=== PATIENT | female | born 1935 | race Asian ===

== ENCOUNTER 2018-03-15 21:16 | Inpatient (IN) | payer OTHER, MEDICAID ==
[~2018-03-15] VITALS: Ht 157.5 cm; Wt 36.3 kg
[2018-03-15 21:16] VITALS: BP_SYST 99
[~2018-03-15 21:16] MED LIST: ACET325T53 PO; ALBU2.5V7 INH; BISA5TAB10 PO; FLUT1DIS3 INH; GUAI600T PO; HYDR-4100 PO; IPRA0.2S6 INH; LEVO25TA7 PO; MAGN400O4 PO; MIDO2.5T PO; MYL80 PO; OMEP20CA10 PO; TAMS0.4C96 PO
[2018-03-15] MEDS ORDERED: NACL 0.9% 1,000 ML IV ONE (21:21)
[2018-03-15] MEDS ORDERED: ASPIRIN 81 MG TAB.CHEW PO ONE (21:30)
[2018-03-15] MEDS ORDERED: MORPHINE 4 MG/ML INJ. SYRINGE IVP ONE (21:30)
[2018-03-15] MEDS ORDERED: cefTRIAXone 1 GM IVPB PREMIX 50 ML IV ONE (21:30)
[2018-03-15] MEDS ORDERED: CARV3.1246 PO (22:02)
[2018-03-15] MEDS ORDERED: OLME20TA14 PO (22:02)
[2018-03-15] MEDS ORDERED: METO-290 PO (22:02)
[2018-03-15] MEDS ORDERED: CRAN450C PO (22:02)
[2018-03-15] MEDS ORDERED: XOP.63 INH (22:02)
[2018-03-15] MEDS ORDERED: LEVO50TA77 PO (22:02)
[2018-03-15] MEDS ORDERED: DOCU-144 PO (22:02)
[2018-03-15] MEDS ORDERED: MEGE400O PO (22:02)
[2018-03-15] MEDS ORDERED: FURO-150 PO (22:02)
[2018-03-15] MEDS ORDERED: ASCO500T20 PO (22:02)
[2018-03-15] MEDS ORDERED: HYOS0.1275 SL (22:02)
[2018-03-15] MEDS ORDERED: APIX2.5T PO (22:02)
[2018-03-15] MEDS ORDERED: LACT10SO66 PO (22:02)
[2018-03-15] MEDS ORDERED: MULT-1100 PO (22:02)
[2018-03-15 22:10] LABS: BILIRUBIN,URINE NEGATIVE (NEGATIVE); CLARITY/URINE CLOUDY (CLEAR); COLOR,URINE YELLOW (YELLOW); GLUCOSE,URINE NEGATIVE (NEGATIVE); KETONES,URINE NEGATIVE (NEGATIVE); LEUKOCYTE ESTERASE ,URINE 3+ (NEGATIVE); NITRITE, URINE POSITIVE (NEGATIVE); PROTEIN URINE NEGATIVE (NEGATIVE); UROBILINOGEN,URINE 0.2 (0.2-1.0)
[2018-03-15 22:18] LABS: BLOOD, URINE TRACE (NEGATIVE)
[2018-03-15 22:33] LABS: BACTERIA,URINE MANY /HPF (None Seen); RBC,URINE 0-3 /HPF (0-3); WBC,URINE 20-50 /HPF (0-3)
[2018-03-15 22:34] LABS: FINE GRANULAR CASTS,URINE 0-10 /LPF (None Seen); MUCUS,URINE 1+ /LPF (None Seen)
[2018-03-15 22:56] LABS: BASOPHILS % (AUTO) 0.3 % (0.0-2.0); EOSINOPHILS % (AUTO) 0.2 % (0.0-4.0); HEMATOCRIT 35.6 % (36-48); HEMOGLOBIN 11.9 g/dL (12.0-16.0); LYMPHOCYTES # (AUTO) 0.5 K/uL (1.0-5.5); LYMPHOCYTES % (AUTO) 5.1 % (20.5-51.5); MEAN CORPUSCULAR HEMOGLOBIN 32 pg (27-31); MEAN CORPUSCULAR HGB CONC 33 % (32-36); MEAN CORPUSCULAR VOLUME 96 fL (79.0-98.0); MONOCYTES # (AUTO) 0.6 K/uL (0.0-1.0); MONOCYTES % (AUTO) 5.8 % (1.7-9.3); NEUTROPHILS # (AUTO) 8.5 K/uL (1.8-7.7); NEUTROPHILS % (AUTO) 88.6 % (40.0-70.0); PLATELET COUNT (AUTO) 283 K/uL (130-430); RED BLOOD CELL COUNT(AUTO) 3.71 MIL/uL (4.2-6.2); RED CELL DISTRIBUTION WIDTH 15.6 % (9.0-15.0); WHITE BLOOD COUNT (AUTO) 9.6 K/uL (4.8-10.8)
[2018-03-15 23:02] LABS: ANION GAP 13 (5-15); CALCIUM 8.6 mg/dL (8.4-11.0); CHLORIDE 107 mmol/L (98-107); CREATININE 1.79 mg/dL (0.55-1.30); GLUCOSE 135 mg/dL (70-99); POTASSIUM 4.5 mmol/L (3.5-5.1); SODIUM SERUM 139 mmol/L (136-145); UREA NITROGEN, BLOOD 75 mg/dL (8-21)
[2018-03-15 23:05] LABS: ALANINE AMINOTRANSFERASE 11 U/L (12-78); ALBUMIN 2.7 g/dL (3.4-4.8); AMYLASE 39 U/L (0-100); ASPARTATE AMINOTRANSFERASE 12 U/L (10-37); LIPASE 93 U/L (73-393); TOTAL BILIRUBIN 0.6 mg/dL (0.0-1.0)
[2018-03-15 23:27] LABS: INR 1.1 (0.8-1.2)
[2018-03-15] MEDS ORDERED: NS 500 ML IV ONE (23:30)
[2018-03-16] MEDS ORDERED: LevALBUTEROL HCL 1.25 MG/0.5 ML *CONC.* VIAL.NEB (XOPENEX CONC.) INH PRN
[2018-03-16] MEDS ORDERED: ACETAMINOPHEN 325 MG TABLET PO PRN
[2018-03-16] MEDS ORDERED: MILK OF MAGNESIA 30 ML UDC PO PRN ×2
[2018-03-16] MEDS ORDERED: HYOSCYAMINE SULFATE 0.125 MG TABLET SL PRN
[2018-03-16 00:40] VITALS: BP_SYST 125
[2018-03-16] MEDS: D5/0.45 NS 1,000 ML IV SCH (01:09)
[2018-03-16] MEDS: AZITHROMYCIN 500 MG in NS 250 ML IV SCH (01:13)
[2018-03-16] MEDS ORDERED: AZITHROMYCIN 500 MG/VIAL (ZITHROMAX) IV ONE ×2 (01:14→01:34)
[2018-03-16 01:45] VITALS: BP_SYST 114
[2018-03-16] MEDS: LEVOTHYROXINE SODIUM 0.05 MG TABLET PO SCH (07:00)
[2018-03-16] MEDS: OMEPRAZOLE 20 MG CAPSULE.DR (PriLOSEC) PO SCH (07:00)
[2018-03-16 07:18] LABS: EOSINOPHILS % (AUTO) 0.1 % (0.0-4.0); HEMATOCRIT 32.8 % (36-48); HEMOGLOBIN 10.9 g/dL (12.0-16.0); LYMPHOCYTES # (AUTO) 0.6 K/uL (1.0-5.5); LYMPHOCYTES % (AUTO) 5.2 % (20.5-51.5); MEAN CORPUSCULAR HEMOGLOBIN 32 pg (27-31); MEAN CORPUSCULAR HGB CONC 33 % (32-36); MEAN CORPUSCULAR VOLUME 96 fL (79.0-98.0); MONOCYTES # (AUTO) 0.6 K/uL (0.0-1.0); MONOCYTES % (AUTO) 6.1 % (1.7-9.3); NEUTROPHILS # (AUTO) 9.4 K/uL (1.8-7.7); NEUTROPHILS % (AUTO) 88.6 % (40.0-70.0); PLATELET COUNT (AUTO) 230 K/uL (130-430); RED BLOOD CELL COUNT(AUTO) 3.41 MIL/uL (4.2-6.2); RED CELL DISTRIBUTION WIDTH 16.1 % (9.0-15.0); WHITE BLOOD COUNT (AUTO) 10.6 K/uL (4.8-10.8)
[2018-03-16 07:47] LABS: ANION GAP 10 (5-15); CALCIUM 7.9 mg/dL (8.4-11.0); CHLORIDE 115 mmol/L (98-107); CREATININE 1.57 mg/dL (0.55-1.30); GLUCOSE 136 mg/dL (70-99); POTASSIUM 4.5 mmol/L (3.5-5.1); SODIUM SERUM 146 mmol/L (136-145); UREA NITROGEN, BLOOD 63 mg/dL (8-21)
[2018-03-16 08:25] VITALS: BP_SYST 97
[2018-03-16] MEDS: CARVEDILOL 3.125 MG TABLET (COREG) PO SCH ×2 (09:00→21:00)
[2018-03-16] MEDS: LOSARTAN POTASSIUM 50 MG TABLET (COZAAR) PO SCH (09:00)
[2018-03-16] MEDS ORDERED: LEVALBUTEROL HCL 0.63 MG/3 ML VIAL.NEB INH SCH (09:00)
[2018-03-16] MEDS: FUROSEMIDE 20 MG TABLET PO SCH (09:00)
[2018-03-16] MEDS: APIXABAN 2.5 MG TABLET PO SCH ×2 (09:44→21:37)
[2018-03-16] MEDS: MEGESTROL ACETATE 400 MG/10 ML UDC PO SCH (09:44)
[2018-03-16] MEDS: METOCLOPRAMIDE HCL 10 MG TABLET PO SCH ×3 (09:44→21:37)
[2018-03-16] MEDS: LACTULOSE 20 GM/30 ML UDC PO SCH (09:44)
[2018-03-16] MEDS: ASCORBIC ACID 500 MG TABLET PO SCH (09:44)
[2018-03-16] MEDS: DOCUSATE SODIUM 100 MG CAPSULE PO SCH (09:44)
[2018-03-16 12:35] VITALS: BP_SYST 120
[2018-03-16 16:35] VITALS: BP_SYST 97
[2018-03-16 20:15] VITALS: BP_SYST 100
[2018-03-16] MEDS: cefTRIAXone 1 GM in D5W 50 ML IV SCH (21:37)
[2018-03-17] MEDS: AZITHROMYCIN 500 MG in NS 250 ML IV SCH (00:30)
[2018-03-17 01:15] VITALS: BP_SYST 104
[2018-03-17] MEDS: LEVOTHYROXINE SODIUM 0.05 MG TABLET PO SCH (06:42)
[2018-03-17] MEDS: OMEPRAZOLE 20 MG CAPSULE.DR (PriLOSEC) PO SCH (06:42)
[2018-03-17 08:52] VITALS: BP_SYST 107
[2018-03-17] MEDS: FUROSEMIDE 20 MG TABLET PO SCH (09:00)
[2018-03-17] MEDS: LOSARTAN POTASSIUM 50 MG TABLET (COZAAR) PO SCH (09:00)
[2018-03-17] MEDS: APIXABAN 2.5 MG TABLET PO SCH ×2 (09:45→22:35)
[2018-03-17] MEDS: ASCORBIC ACID 500 MG TABLET PO SCH (09:45)
[2018-03-17] MEDS: DOCUSATE SODIUM 100 MG CAPSULE PO SCH (09:45)
[2018-03-17] MEDS: METOCLOPRAMIDE HCL 10 MG TABLET PO SCH ×3 (09:45→22:35)
[2018-03-17] MEDS: MEGESTROL ACETATE 400 MG/10 ML UDC PO SCH (09:45)
[2018-03-17] MEDS: CARVEDILOL 3.125 MG TABLET (COREG) PO SCH ×2 (10:20→22:35)
[2018-03-17 12:49] VITALS: BP_SYST 116
[2018-03-17 16:27] VITALS: BP_SYST 107
[2018-03-17 20:00] VITALS: BP_SYST 109
[2018-03-17] MEDS: cefTRIAXone 1 GM in D5W 50 ML IV SCH (22:35)
[2018-03-17] MEDS: MUPIROCIN 2% TOPICAL OINTMENT 22 GM NS SCH (22:36)
[2018-03-17] MEDS: D5/0.45 NS 1,000 ML IV SCH (23:08)
[2018-03-17 23:30] VITALS: BP_SYST 115
[2018-03-18] MEDS: AZITHROMYCIN 500 MG in NS 250 ML IV SCH (00:26)
[2018-03-18] MEDS: D5/0.45 NS 1,000 ML IV SCH (01:45)
[2018-03-18] MEDS: LEVOTHYROXINE SODIUM 0.05 MG TABLET PO SCH (05:59)
[2018-03-18] MEDS: OMEPRAZOLE 20 MG CAPSULE.DR (PriLOSEC) PO SCH (05:59)
[2018-03-18 06:42] LABS: BASOPHILS % (AUTO) 0.1 % (0.0-2.0); EOSINOPHILS # (AUTO) 0.2 K/uL (0.0-0.4); EOSINOPHILS % (AUTO) 2.1 % (0.0-4.0); HEMATOCRIT 40.9 % (36-48); HEMOGLOBIN 13.6 g/dL (12.0-16.0); LYMPHOCYTES # (AUTO) 0.8 K/uL (1.0-5.5); LYMPHOCYTES % (AUTO) 6.6 % (20.5-51.5); MEAN CORPUSCULAR HEMOGLOBIN 32 pg (27-31); MEAN CORPUSCULAR HGB CONC 33 % (32-36); MEAN CORPUSCULAR VOLUME 96 fL (79.0-98.0); MONOCYTES # (AUTO) 0.3 K/uL (0.0-1.0); NEUTROPHILS # (AUTO) 10.3 K/uL (1.8-7.7); NEUTROPHILS % (AUTO) 88.2 % (40.0-70.0); PLATELET COUNT (AUTO) 300 K/uL (130-430); RED BLOOD CELL COUNT(AUTO) 4.24 MIL/uL (4.2-6.2); RED CELL DISTRIBUTION WIDTH 15.4 % (9.0-15.0); WHITE BLOOD COUNT (AUTO) 11.6 K/uL (4.8-10.8)
[2018-03-18 06:44] VITALS: BP_SYST 117
[2018-03-18 06:53] LABS: ANION GAP 8 (5-15); CALCIUM 8.8 mg/dL (8.4-11.0); CHLORIDE 107 mmol/L (98-107); CREATININE 1.21 mg/dL (0.55-1.30); GLUCOSE 104 mg/dL (70-99); PHOSPHORUS 2.8 mg/dL (2.7-4.5); POTASSIUM 5.4 mmol/L (3.5-5.1); SODIUM SERUM 136 mmol/L (136-145); UREA NITROGEN, BLOOD 45 mg/dL (8-21)
[2018-03-18] MEDS: LevALBUTEROL HCL 1.25 MG/0.5 ML *CONC.* VIAL.NEB (XOPENEX CONC.) INH SCH ×2 (07:31→13:13)
[2018-03-18 08:00] VITALS: BP_SYST 132
[2018-03-18] MEDS: APIXABAN 2.5 MG TABLET PO SCH (09:25)
[2018-03-18] MEDS: FUROSEMIDE 20 MG TABLET PO SCH (09:25)
[2018-03-18] MEDS: ASCORBIC ACID 500 MG TABLET PO SCH (09:25)
[2018-03-18] MEDS: MUPIROCIN 2% TOPICAL OINTMENT 22 GM NS SCH (09:25)
[2018-03-18] MEDS: METOCLOPRAMIDE HCL 10 MG TABLET PO SCH ×2 (09:26→15:24)
[2018-03-18] MEDS: LOSARTAN POTASSIUM 50 MG TABLET (COZAAR) PO SCH (09:28)
[2018-03-18] MEDS: DOCUSATE SODIUM 100 MG CAPSULE PO SCH (09:28)
[2018-03-18] MEDS: CARVEDILOL 3.125 MG TABLET (COREG) PO SCH (09:28)
[2018-03-18] MEDS: MEGESTROL ACETATE 400 MG/10 ML UDC PO SCH (09:30)
[2018-03-18] MEDS: LACTULOSE 20 GM/30 ML UDC PO SCH (09:31)
[2018-03-18] MEDS ORDERED: COMMUNICATION ORDER XX ONE (09:45)
[2018-03-18] MEDS ORDERED: DOCUSATE SODIUM 100 MG/10 ML UDC PO ONE (10:15)
[2018-03-18 12:25] VITALS: BP_SYST 110
[2018-03-18 16:09] VITALS: BP_SYST 97
[2018-03-18 18:08] VITALS: BP_SYST 97
[2018-03-18 19:12] VITALS: BP_SYST 101
[2018-03-19] MEDS ORDERED: DOCUSATE SODIUM 100 MG/10 ML UDC PO PRN (09:00)
== END 2018-03-18 19:25 | DRG 871 ==
LOC: SED 21:16 → STU 23:41
PROVIDERS: ADMIT Family Medicine; ATTEND Family Medicine
DX: A41.9 Sepsis, unspecified organism (principal); E43 Unspecified severe protein-calorie malnutrition; J18.9 Pneumonia, unspecified organism; I50.22 Chronic systolic (congestive) heart failure; N17.9 Acute kidney failure, unspecified; N39.0 Urinary tract infection, site not specified; Z68.1 Body mass index [BMI] 19.9 or less, adult; E03.9 Hypothyroidism, unspecified; E86.0 Dehydration; F03.90 Unspecified dementia, unspecified severity, without behavioral disturbance, psychotic disturbance, mood disturbance, and anxiety; I48.2 Chronic atrial fibrillation
CPT/HCPCS: 36415; 71045; 80048; 80053; 81000-TC; 82150-TC; 82550-TC; 83605; 83690-TC; 83735-TC; 83880; 84100-TC; 84484; 85025; 85379; 85610-TC; 85730-TC; 87040-TC; 87081; 87086; 87186-TC; 93005; 94640; 96361; 96365; 96375; 99291; 99292; J0456; J0696; J2270; J7040; J7050; J7060; J7612; J8597

== ENCOUNTER 2018-06-16 15:02 | Inpatient (IN) | payer OTHER, MEDICAID ==
[~2018-06-16] VITALS: Ht 154.9 cm; Wt 33.1 kg
[2018-06-16 15:02] VITALS: BP_SYST 112
[~2018-06-16 15:02] MED LIST changes: -ALBU2.5V7 INH; +APIX2.5T PO; +ASCO500T20 PO; -BISA5TAB10 PO; +CARV3.1246 PO; +CRAN1CAP4 PO; +DOCU-144 PO; -FLUT1DIS3 INH; +FURO-150 PO; -GUAI600T PO; -HYDR-4100 PO; +HYOS0.1275 SL; -IPRA0.2S6 INH; +LACT10SO66 PO; -LEVO25TA7 PO; +LOSA100T3 PO; -MAGN400O4 PO; +MEGE400O PO; +METO-290 PO; -MIDO2.5T PO; +MOM PO; +MULT PO; -MYL80 PO; +OLME20TA14 PO; +PIPERACILLIN/TAZO 2.25G/DEX-IS 50 ML IV SCH; +SYN50 PO; -TAMS0.4C96 PO; +XOP.63 INH; +ZIN220 PO
[2018-06-16] MEDS ORDERED: EPINEPHrine 1 MG/ML AMP ONE (16:26)
[2018-06-16] MEDS ORDERED: GASTROGRAFIN 120 ML ONE (16:27)
[2018-06-16] MEDS ORDERED: NACL 0.9% 1,000 ML IV ONE ×2 (17:16→17:30)
[2018-06-16 18:21] LABS: HEMATOCRIT 31.4 % (36-48); HEMOGLOBIN 11.1 g/dL (12.0-16.0); MEAN CORPUSCULAR HEMOGLOBIN 35 pg (27-31); MEAN CORPUSCULAR HGB CONC 35 % (32-36); MEAN CORPUSCULAR VOLUME 99 fL (79.0-98.0); PLATELET COUNT (AUTO) 148 K/uL (130-430); RED BLOOD CELL COUNT(AUTO) 3.18 MIL/uL (4.2-6.2); RED CELL DISTRIBUTION WIDTH 17.7 % (9.0-15.0); WHITE BLOOD COUNT (AUTO) 13.7 K/uL (4.8-10.8)
[2018-06-16 18:25] LABS: ANION GAP 9 (5-15); CHLORIDE 103 mmol/L (98-107); CREATININE 1.77 mg/dL (0.55-1.30); GLUCOSE 114 mg/dL (70-99); SODIUM SERUM 138 mmol/L (136-145); UREA NITROGEN, BLOOD 84 mg/dL (8-21)
[2018-06-16 18:33] LABS: POTASSIUM 6.3 mmol/L (3.5-5.1)
[2018-06-16 18:33] LABS: BILIRUBIN,URINE NEGATIVE (NEGATIVE); BLOOD, URINE NEGATIVE (NEGATIVE); CLARITY/URINE CLEAR (CLEAR); COLOR,URINE YELLOW (YELLOW); GLUCOSE,URINE NEGATIVE (NEGATIVE); KETONES,URINE NEGATIVE (NEGATIVE); LEUKOCYTE ESTERASE ,URINE NEGATIVE (NEGATIVE); NITRITE, URINE NEGATIVE (NEGATIVE); PROTEIN URINE 2+ (NEGATIVE); UROBILINOGEN,URINE 0.2 (0.2-1.0)
[2018-06-16 18:54] LABS: RBC,URINE 0-3 /HPF (0-3); WBC,URINE 0-3 /HPF (0-3)
[2018-06-16 18:55] LABS: ALANINE AMINOTRANSFERASE 488 U/L (12-78); ASPARTATE AMINOTRANSFERASE 743 U/L (10-37); TOTAL BILIRUBIN 0.8 mg/dL (0.0-1.0)
[2018-06-16 18:55] LABS: FINE GRANULAR CASTS,URINE 0-10 /LPF (None Seen); YEAST,URINE None Seen /HPF (None Seen)
[2018-06-16 18:56] LABS: ALBUMIN 3.2 g/dL (3.4-4.8)
[2018-06-16] MEDS ORDERED: SODIUM BICARB IV ONE (19:00)
[2018-06-16] MEDS ORDERED: cefTRIAXone 1 GM IVPB PREMIX 50 ML IV ONE (19:00)
[2018-06-16] MEDS ORDERED: INSULIN REGULAR, HUMAN 10 UNITS/0.1 ML INJ IVP ONE (19:00)
[2018-06-16] MEDS ORDERED: DEXTROSE 50% JECT 50 ML DISP.SYRIN IVP ONE (19:00)
[2018-06-16] MEDS ORDERED: D5/0.45 NS 1,000 ML IV SCH (19:00)
[2018-06-16 19:02] LABS: BACTERIA,URINE MANY /HPF (None Seen)
[2018-06-16 19:06] LABS: BAND % (MANUAL) 5 % (0-6); BASOPHILS % (MANUAL) 0 % (0-2); EOSINOPHILS % (MANUAL) 0 % (0-7); LYMPHOCYTES % (MANUAL) 2 % (20-46); MONOCYTES % (MANUAL) 2 % (0-11)
[2018-06-16] MEDS ORDERED: SODIUM BICARBONATE 8.4% JECT 50 MEQ/50 ML SYRINGE ONE (19:40)
[2018-06-16] MEDS ORDERED: SODIUM BICARBONATE 8.4% JECT 50 MEQ/50 ML SYRINGE IVP ONE (19:45)
[2018-06-16 20:00] VITALS: BP_SYST 102
[2018-06-16] MEDS ORDERED: MILK OF MAGNESIA 30 ML UDC PO PRN (20:00)
[2018-06-16] MEDS ORDERED: ACETAMINOPHEN 325 MG TABLET PO PRN (20:00)
[2018-06-16] MEDS ORDERED: LevALBUTEROL HCL 1.25 MG/0.5 ML *CONC.* VIAL.NEB (XOPENEX CONC.) INH PRN ×2 (20:15)
[2018-06-16 20:20] VITALS: BP_SYST 135
[2018-06-16] MEDS ORDERED: PIPERACILLIN/TAZO 2.25G/DEX-IS 50 ML IV SCH (21:00)
[2018-06-16] MEDS ORDERED: LevALBUTEROL HCL 1.25 MG/0.5 ML *CONC.* VIAL.NEB (XOPENEX CONC.) INH ONE (21:00)
[2018-06-16 21:02] VITALS: BP_SYST 124
[2018-06-16] MEDS ORDERED: PIPERACILLIN/TAZOBACTAM 2.25 GM VIAL IV ONE (21:53)
[2018-06-16] MEDS: CARVEDILOL 3.125 MG TABLET (COREG) PO SCH (22:12)
[2018-06-16] MEDS: METOCLOPRAMIDE HCL 10 MG TABLET PO SCH (22:13)
[2018-06-16] MEDS: APIXABAN 2.5 MG TABLET PO SCH (22:24)
[2018-06-16] MEDS ORDERED: DILTIAZEM HCL 25 MG/5 ML VIAL IVP ONE (23:15)
[2018-06-17] VITALS (22 sets, daily range): BP systolic 95–146
[2018-06-17] MEDS: LevALBUTEROL HCL 1.25 MG/0.5 ML *CONC.* VIAL.NEB (XOPENEX CONC.) INH SCH ×4 (02:18→19:42)
[2018-06-17 07:06] LABS: BASOPHILS % (AUTO) 0.1 % (0.0-2.0); EOSINOPHILS # (AUTO) 0.1 K/uL (0.0-0.4); EOSINOPHILS % (AUTO) 0.4 % (0.0-4.0); HEMATOCRIT 32.9 % (36-48); HEMOGLOBIN 10.6 g/dL (12.0-16.0); LYMPHOCYTES # (AUTO) 0.7 K/uL (1.0-5.5); LYMPHOCYTES % (AUTO) 5.4 % (20.5-51.5); MEAN CORPUSCULAR HEMOGLOBIN 32 pg (27-31); MEAN CORPUSCULAR HGB CONC 32 % (32-36); MEAN CORPUSCULAR VOLUME 99 fL (79.0-98.0); MONOCYTES # (AUTO) 0.9 K/uL (0.0-1.0); MONOCYTES % (AUTO) 6.8 % (1.7-9.3); NEUTROPHILS # (AUTO) 11.3 K/uL (1.8-7.7); NEUTROPHILS % (AUTO) 87.3 % (40.0-70.0); PLATELET COUNT (AUTO) 128 K/uL (130-430); RED BLOOD CELL COUNT(AUTO) 3.33 MIL/uL (4.2-6.2); RED CELL DISTRIBUTION WIDTH 18.3 % (9.0-15.0)
[2018-06-17 07:22] LABS: ANION GAP 6 (5-15); CALCIUM 8.3 mg/dL (8.4-11.0); CHLORIDE 106 mmol/L (98-107); CREATININE 1.76 mg/dL (0.55-1.30); GLUCOSE 168 mg/dL (70-99); POTASSIUM 5.2 mmol/L (3.5-5.1); SODIUM SERUM 141 mmol/L (136-145); UREA NITROGEN, BLOOD 81 mg/dL (8-21)
[2018-06-17] MEDS: OMEPRAZOLE 20 MG CAPSULE.DR (PriLOSEC) PO SCH (08:09)
[2018-06-17] MEDS: LACTULOSE 20 GM/30 ML UDC PO SCH (08:09)
[2018-06-17] MEDS: METOCLOPRAMIDE HCL 10 MG TABLET PO SCH ×3 (08:09→20:51)
[2018-06-17] MEDS: DOCUSATE SODIUM 100 MG CAPSULE PO SCH (08:10)
[2018-06-17] MEDS: ASCORBIC ACID 500 MG TABLET PO SCH (08:10)
[2018-06-17] MEDS: LEVOTHYROXINE SODIUM 0.05 MG TABLET PO SCH (08:10)
[2018-06-17] MEDS: MULTIVITAMINS TAB 1 TABLET PO SCH (08:10)
[2018-06-17] MEDS: PIPERACILLIN/TAZO 2.25G/DEX-IS 50 ML IV SCH ×4 (08:12→23:50)
[2018-06-17] MEDS: CARVEDILOL 3.125 MG TABLET (COREG) PO SCH ×2 (08:12→20:51)
[2018-06-17] MEDS: APIXABAN 2.5 MG TABLET PO SCH ×2 (08:30→20:55)
[2018-06-17 08:58] LABS: ALBUMIN 2.9 g/dL (3.4-4.8); BILIRUBIN,DIRECT 0.5 mg/dL (0.0-0.3); TOTAL BILIRUBIN 0.7 mg/dL (0.0-1.0)
[2018-06-17] MEDS: LOSARTAN POTASSIUM 50 MG TABLET (COZAAR) PO SCH (09:00)
[2018-06-17] MEDS: 0.45% NACL 1,000 ML IV SCH (09:14)
[2018-06-17] MEDS: LACTOBACILLUS RHAMNOSUS GG 1 CAP CAPSULE GT SCH (20:51)
[2018-06-18] VITALS (25 sets, daily range): BP systolic 79–144
[2018-06-18] MEDS: LevALBUTEROL HCL 1.25 MG/0.5 ML *CONC.* VIAL.NEB (XOPENEX CONC.) INH SCH ×4 (00:36→19:33)
[2018-06-18] MEDS: OMEPRAZOLE 20 MG CAPSULE.DR (PriLOSEC) PO SCH (06:12)
[2018-06-18] MEDS: PIPERACILLIN/TAZO 2.25G/DEX-IS 50 ML IV SCH ×3 (06:12→17:13)
[2018-06-18] MEDS: LEVOTHYROXINE SODIUM 0.05 MG TABLET PO SCH (06:12)
[2018-06-18 06:43] LABS: HEMATOCRIT 31.4 % (36-48); HEMOGLOBIN 10.4 g/dL (12.0-16.0); MEAN CORPUSCULAR HEMOGLOBIN 33 pg (27-31); MEAN CORPUSCULAR HGB CONC 33 % (32-36); MEAN CORPUSCULAR VOLUME 99 fL (79.0-98.0); PLATELET COUNT (AUTO) 151 K/uL (130-430); RED BLOOD CELL COUNT(AUTO) 3.16 MIL/uL (4.2-6.2); RED CELL DISTRIBUTION WIDTH 18.6 % (9.0-15.0); WHITE BLOOD COUNT (AUTO) 11.8 K/uL (4.8-10.8)
[2018-06-18 06:58] LABS: ALANINE AMINOTRANSFERASE 366 U/L (12-78); ALBUMIN 2.2 g/dL (3.4-4.8); ANION GAP 13 (5-15); ASPARTATE AMINOTRANSFERASE 184 U/L (10-37); CALCIUM 8.3 mg/dL (8.4-11.0); CHLORIDE 106 mmol/L (98-107); CREATININE 1.33 mg/dL (0.55-1.30); GLUCOSE 123 mg/dL (70-99); POTASSIUM 4.6 mmol/L (3.5-5.1); SODIUM SERUM 139 mmol/L (136-145); TOTAL BILIRUBIN 0.6 mg/dL (0.0-1.0); UREA NITROGEN, BLOOD 70 mg/dL (8-21)
[2018-06-18] MEDS: LOSARTAN POTASSIUM 50 MG TABLET (COZAAR) PO SCH (08:12)
[2018-06-18] MEDS: CARVEDILOL 3.125 MG TABLET (COREG) PO SCH ×2 (08:12→21:07)
[2018-06-18] MEDS: APIXABAN 2.5 MG TABLET PO SCH ×2 (08:13→21:09)
[2018-06-18] MEDS: LACTOBACILLUS RHAMNOSUS GG 1 CAP CAPSULE GT SCH ×2 (08:14→21:07)
[2018-06-18] MEDS: METOCLOPRAMIDE HCL 10 MG TABLET PO SCH ×3 (08:14→21:08)
[2018-06-18] MEDS: MULTIVITAMINS TAB 1 TABLET PO SCH (08:14)
[2018-06-18] MEDS: DOCUSATE SODIUM 100 MG CAPSULE PO SCH (08:14)
[2018-06-18] MEDS: ASCORBIC ACID 500 MG TABLET PO SCH (08:14)
[2018-06-18 08:16] LABS: BASOPHILS % (MANUAL) 0 % (0-2); CORRECTED WHITE BLOOD COUNT 10.5 K/uL (4.5-11.0); EOSINOPHILS % (MANUAL) 4 % (0-7); LYMPHOCYTES % (MANUAL) 11 % (20-46); MONOCYTES % (MANUAL) 3 % (0-11)
[2018-06-18] MEDS: 0.45% NACL 1,000 ML IV SCH (08:16)
[2018-06-18] MEDS ORDERED: DILTIAZEM HCL 60 MG TABLET PO ONE (10:00)
[2018-06-18] MEDS: DILTIAZEM HCL 60 MG TABLET PO SCH ×2 (14:00→21:07)
[2018-06-19] VITALS (24 sets, daily range): BP systolic 84–143
[2018-06-19] MEDS: LevALBUTEROL HCL 1.25 MG/0.5 ML *CONC.* VIAL.NEB (XOPENEX CONC.) INH SCH ×4 (00:30→19:44)
[2018-06-19] MEDS ORDERED: NOREPINEPHRINE 4 MG/4 ML VIAL IV ONE ×2 (01:13→20:54)
[2018-06-19] MEDS: NOREPINEPHRINE BITARTRATE 4 MG in D5W 246 ML IV PRN ×2 (01:20→20:55)
[2018-06-19] MEDS: DILTIAZEM HCL 60 MG TABLET PO SCH ×2 (06:00→14:28)
[2018-06-19] MEDS: PIPERACILLIN/TAZO 2.25G/DEX-IS 50 ML IV SCH ×4 (06:11→17:28)
[2018-06-19] MEDS: LEVOTHYROXINE SODIUM 0.05 MG TABLET PO SCH (06:14)
[2018-06-19] MEDS: OMEPRAZOLE 20 MG CAPSULE.DR (PriLOSEC) PO SCH (06:14)
[2018-06-19 06:53] LABS: ALANINE AMINOTRANSFERASE 297 U/L (12-78); ALBUMIN 2.5 g/dL (3.4-4.8); ANION GAP 7 (5-15); ASPARTATE AMINOTRANSFERASE 140 U/L (10-37); CALCIUM 8.3 mg/dL (8.4-11.0); CHLORIDE 106 mmol/L (98-107); CREATININE 1.53 mg/dL (0.55-1.30); GLUCOSE 266 mg/dL (70-99); POTASSIUM 4.9 mmol/L (3.5-5.1); SODIUM SERUM 140 mmol/L (136-145); TOTAL BILIRUBIN 0.7 mg/dL (0.0-1.0); UREA NITROGEN, BLOOD 71 mg/dL (8-21)
[2018-06-19 07:02] LABS: BASOPHILS % (AUTO) 0.1 % (0.0-2.0); EOSINOPHILS # (AUTO) 0.2 K/uL (0.0-0.4); EOSINOPHILS % (AUTO) 1.3 % (0.0-4.0); HEMATOCRIT 32.2 % (36-48); HEMOGLOBIN 10.3 g/dL (12.0-16.0); LYMPHOCYTES # (AUTO) 0.6 K/uL (1.0-5.5); LYMPHOCYTES % (AUTO) 5.1 % (20.5-51.5); MEAN CORPUSCULAR HEMOGLOBIN 32 pg (27-31); MEAN CORPUSCULAR HGB CONC 32 % (32-36); MEAN CORPUSCULAR VOLUME 101 fL (79.0-98.0); MONOCYTES # (AUTO) 0.8 K/uL (0.0-1.0); MONOCYTES % (AUTO) 6.6 % (1.7-9.3); NEUTROPHILS # (AUTO) 10.6 K/uL (1.8-7.7); NEUTROPHILS % (AUTO) 86.9 % (40.0-70.0); PLATELET COUNT (AUTO) 121 K/uL (130-430); RED BLOOD CELL COUNT(AUTO) 3.19 MIL/uL (4.2-6.2); RED CELL DISTRIBUTION WIDTH 18.8 % (9.0-15.0); WHITE BLOOD COUNT (AUTO) 12.3 K/uL (4.8-10.8)
[2018-06-19] MEDS: DOCUSATE SODIUM 100 MG CAPSULE PO SCH (08:38)
[2018-06-19] MEDS: LACTOBACILLUS RHAMNOSUS GG 1 CAP CAPSULE GT SCH ×2 (08:38→20:55)
[2018-06-19] MEDS: MULTIVITAMINS TAB 1 TABLET PO SCH (08:39)
[2018-06-19] MEDS: LOSARTAN POTASSIUM 50 MG TABLET (COZAAR) PO SCH (08:39)
[2018-06-19] MEDS: METOCLOPRAMIDE HCL 10 MG TABLET PO SCH ×3 (08:41→20:55)
[2018-06-19] MEDS: APIXABAN 2.5 MG TABLET PO SCH ×2 (08:41→20:57)
[2018-06-19] MEDS: ASCORBIC ACID 500 MG TABLET PO SCH (08:44)
[2018-06-19] MEDS: 0.45% NACL 1,000 ML IV SCH ×2 (08:45→17:29)
[2018-06-19] MEDS: CARVEDILOL 3.125 MG TABLET (COREG) PO SCH ×2 (09:00→20:56)
[2018-06-19] MEDS ORDERED: ETOMIDATE 20 MG/ 10 ML VIAL (AMIDATE) IVP ONE (12:00)
[2018-06-19] MEDS ORDERED: MIDAZOLAM HCL 5 MG/5 ML VIAL ONE (18:11)
[2018-06-19] MEDS: DILTIAZEM HCL 30 MG TABLET PO SCH (22:04)
[2018-06-20] VITALS (30 sets, daily range): BP systolic 91–138
[2018-06-20] MEDS: PIPERACILLIN/TAZO 2.25G/DEX-IS 50 ML IV SCH ×3 (00:39→11:32)
[2018-06-20] MEDS: LevALBUTEROL HCL 1.25 MG/0.5 ML *CONC.* VIAL.NEB (XOPENEX CONC.) INH SCH ×4 (01:00→19:46)
[2018-06-20] MEDS: LORazepam 2 MG/ML VIAL IVP PRN (02:57)
[2018-06-20] MEDS ORDERED: NOREPINEPHRINE 4 MG/4 ML VIAL IV ONE ×2 (05:00→20:06)
[2018-06-20] MEDS: NOREPINEPHRINE BITARTRATE 4 MG in D5W 246 ML IV PRN ×2 (05:09→21:05)
[2018-06-20] MEDS: DILTIAZEM HCL 30 MG TABLET PO SCH ×3 (06:00→22:05)
[2018-06-20] MEDS: 0.45% NACL 1,000 ML IV SCH ×2 (06:19→09:16)
[2018-06-20] MEDS: LEVOTHYROXINE SODIUM 0.05 MG TABLET PO SCH (07:06)
[2018-06-20] MEDS: OMEPRAZOLE 20 MG CAPSULE.DR (PriLOSEC) PO SCH (07:06)
[2018-06-20 07:07] LABS: ALANINE AMINOTRANSFERASE 219 U/L (12-78); ALBUMIN 2.3 g/dL (3.4-4.8); ANION GAP 12 (5-15); ASPARTATE AMINOTRANSFERASE 75 U/L (10-37); CALCIUM 7.7 mg/dL (8.4-11.0); CHLORIDE 102 mmol/L (98-107); CREATININE 1.36 mg/dL (0.55-1.30); GLUCOSE 218 mg/dL (70-99); POTASSIUM 4.8 mmol/L (3.5-5.1); SODIUM SERUM 136 mmol/L (136-145); TOTAL BILIRUBIN 0.7 mg/dL (0.0-1.0); UREA NITROGEN, BLOOD 59 mg/dL (8-21)
[2018-06-20 07:14] LABS: BASOPHILS % (AUTO) 0.3 % (0.0-2.0); EOSINOPHILS # (AUTO) 0.3 K/uL (0.0-0.4); EOSINOPHILS % (AUTO) 2.5 % (0.0-4.0); HEMATOCRIT 32.1 % (36-48); HEMOGLOBIN 10.1 g/dL (12.0-16.0); LYMPHOCYTES # (AUTO) 0.8 K/uL (1.0-5.5); LYMPHOCYTES % (AUTO) 7.8 % (20.5-51.5); MEAN CORPUSCULAR HEMOGLOBIN 31 pg (27-31); MEAN CORPUSCULAR HGB CONC 31 % (32-36); MEAN CORPUSCULAR VOLUME 100 fL (79.0-98.0); MONOCYTES # (AUTO) 0.6 K/uL (0.0-1.0); MONOCYTES % (AUTO) 6.3 % (1.7-9.3); NEUTROPHILS # (AUTO) 8.5 K/uL (1.8-7.7); NEUTROPHILS % (AUTO) 83.1 % (40.0-70.0); PLATELET COUNT (AUTO) 134 K/uL (130-430); RED BLOOD CELL COUNT(AUTO) 3.22 MIL/uL (4.2-6.2); RED CELL DISTRIBUTION WIDTH 19.1 % (9.0-15.0); WHITE BLOOD COUNT (AUTO) 10.2 K/uL (4.8-10.8)
[2018-06-20] MEDS: LACTOBACILLUS RHAMNOSUS GG 1 CAP CAPSULE GT SCH ×2 (09:16→20:57)
[2018-06-20] MEDS: METOCLOPRAMIDE HCL 10 MG TABLET PO SCH ×3 (09:16→20:57)
[2018-06-20] MEDS: ASCORBIC ACID 500 MG TABLET PO SCH (09:16)
[2018-06-20] MEDS: MULTIVITAMINS TAB 1 TABLET PO SCH (09:16)
[2018-06-20] MEDS: LACTULOSE 20 GM/30 ML UDC PO SCH (09:16)
[2018-06-20] MEDS: DOCUSATE SODIUM 100 MG CAPSULE PO SCH (09:16)
[2018-06-20] MEDS: LOSARTAN POTASSIUM 50 MG TABLET (COZAAR) PO SCH (09:17)
[2018-06-20] MEDS: CARVEDILOL 3.125 MG TABLET (COREG) PO SCH ×2 (09:17→21:04)
[2018-06-20] MEDS: APIXABAN 2.5 MG TABLET PO SCH ×2 (09:18→21:00)
[2018-06-20] MEDS ORDERED: HYDROCORTISONE SOD SUCC 100 MG/2 ML VIAL IVP ONE (10:00)
[2018-06-20] MEDS: HYDROCORTISONE SOD SUCC 100 MG/2 ML VIAL IVP SCH ×2 (14:25→22:05)
[2018-06-21] VITALS (30 sets, daily range): BP systolic 91–162
[2018-06-21] MEDS: LevALBUTEROL HCL 1.25 MG/0.5 ML *CONC.* VIAL.NEB (XOPENEX CONC.) INH SCH ×4 (00:48→19:15)
[2018-06-21] MEDS: 0.45% NACL 1,000 ML IV SCH ×2 (02:19→16:01)
[2018-06-21] MEDS: HYDROCORTISONE SOD SUCC 100 MG/2 ML VIAL IVP SCH ×3 (05:15→22:40)
[2018-06-21] MEDS: DILTIAZEM HCL 30 MG TABLET PO SCH ×3 (05:15→22:41)
[2018-06-21] MEDS: LEVOTHYROXINE SODIUM 0.05 MG TABLET PO SCH (06:16)
[2018-06-21] MEDS: OMEPRAZOLE 20 MG CAPSULE.DR (PriLOSEC) PO SCH (06:16)
[2018-06-21] MEDS: PIPERACILLIN/TAZO 2.25G/DEX-IS 50 ML IV SCH ×4 (06:19→17:27)
[2018-06-21 06:32] LABS: ALANINE AMINOTRANSFERASE 172 U/L (12-78); ALBUMIN 2.2 g/dL (3.4-4.8); ANION GAP 8 (5-15); ASPARTATE AMINOTRANSFERASE 42 U/L (10-37); CALCIUM 7.9 mg/dL (8.4-11.0); CHLORIDE 99 mmol/L (98-107); CREATININE 1.11 mg/dL (0.55-1.30); GLUCOSE 198 mg/dL (70-99); POTASSIUM 4.3 mmol/L (3.5-5.1); SODIUM SERUM 133 mmol/L (136-145); TOTAL BILIRUBIN 0.7 mg/dL (0.0-1.0); UREA NITROGEN, BLOOD 41 mg/dL (8-21)
[2018-06-21 07:07] LABS: HEMATOCRIT 34.3 % (36-48); HEMOGLOBIN 11.1 g/dL (12.0-16.0); MEAN CORPUSCULAR HEMOGLOBIN 32 pg (27-31); MEAN CORPUSCULAR HGB CONC 33 % (32-36); MEAN CORPUSCULAR VOLUME 100 fL (79.0-98.0); PLATELET COUNT (AUTO) 133 K/uL (130-430); RED BLOOD CELL COUNT(AUTO) 3.44 MIL/uL (4.2-6.2); RED CELL DISTRIBUTION WIDTH 20.4 % (9.0-15.0); WHITE BLOOD COUNT (AUTO) 9.9 K/uL (4.8-10.8)
[2018-06-21] MEDS: CARVEDILOL 3.125 MG TABLET (COREG) PO SCH ×2 (08:30→22:42)
[2018-06-21] MEDS: LOSARTAN POTASSIUM 50 MG TABLET (COZAAR) PO SCH (08:31)
[2018-06-21] MEDS: DOCUSATE SODIUM 100 MG CAPSULE PO SCH (08:36)
[2018-06-21] MEDS: LACTOBACILLUS RHAMNOSUS GG 1 CAP CAPSULE GT SCH ×2 (08:36→22:41)
[2018-06-21] MEDS: ASCORBIC ACID 500 MG TABLET PO SCH (08:36)
[2018-06-21] MEDS: MULTIVITAMINS TAB 1 TABLET PO SCH (08:40)
[2018-06-21] MEDS: METOCLOPRAMIDE HCL 10 MG TABLET PO SCH ×3 (08:40→22:40)
[2018-06-21] MEDS: APIXABAN 2.5 MG TABLET PO SCH ×2 (08:44→22:42)
[2018-06-21] MEDS ORDERED: NS 250 ML IV ONE (09:15)
[2018-06-21 11:33] LABS: LYMPHOCYTES % (MANUAL) 3 % (20-46)
[2018-06-21 11:38] LABS: BASOPHILS % (MANUAL) 0 % (0-2); EOSINOPHILS % (MANUAL) 0 % (0-7); MONOCYTES % (MANUAL) 0 % (0-11)
[2018-06-22] VITALS (25 sets, daily range): BP systolic 116–161
[2018-06-22] MEDS: LevALBUTEROL HCL 1.25 MG/0.5 ML *CONC.* VIAL.NEB (XOPENEX CONC.) INH SCH ×4 (01:10→19:30)
[2018-06-22] MEDS: 0.45% NACL 1,000 ML IV SCH ×2 (02:12→11:43)
[2018-06-22] MEDS: PIPERACILLIN/TAZO 2.25G/DEX-IS 50 ML IV SCH ×5 (02:18→23:15)
[2018-06-22] MEDS: OMEPRAZOLE 20 MG CAPSULE.DR (PriLOSEC) PO SCH (06:38)
[2018-06-22] MEDS: LEVOTHYROXINE SODIUM 0.05 MG TABLET PO SCH (06:38)
[2018-06-22] MEDS: DILTIAZEM HCL 30 MG TABLET PO SCH ×3 (06:39→22:52)
[2018-06-22] MEDS: HYDROCORTISONE SOD SUCC 100 MG/2 ML VIAL IVP SCH ×3 (06:40→22:52)
[2018-06-22 06:50] LABS: BASOPHILS % (AUTO) 0.1 % (0.0-2.0); EOSINOPHILS % (AUTO) 0.1 % (0.0-4.0); HEMATOCRIT 32.2 % (36-48); HEMOGLOBIN 10.5 g/dL (12.0-16.0); LYMPHOCYTES # (AUTO) 0.4 K/uL (1.0-5.5); LYMPHOCYTES % (AUTO) 3.3 % (20.5-51.5); MEAN CORPUSCULAR HEMOGLOBIN 33 pg (27-31); MEAN CORPUSCULAR HGB CONC 33 % (32-36); MEAN CORPUSCULAR VOLUME 101 fL (79.0-98.0); MONOCYTES # (AUTO) 0.1 K/uL (0.0-1.0); MONOCYTES % (AUTO) 1.1 % (1.7-9.3); NEUTROPHILS # (AUTO) 11.8 K/uL (1.8-7.7); NEUTROPHILS % (AUTO) 95.4 % (40.0-70.0); PLATELET COUNT (AUTO) 174 K/uL (130-430); RED BLOOD CELL COUNT(AUTO) 3.19 MIL/uL (4.2-6.2); RED CELL DISTRIBUTION WIDTH 20.9 % (9.0-15.0); WHITE BLOOD COUNT (AUTO) 12.3 K/uL (4.8-10.8)
[2018-06-22 06:51] LABS: ANION GAP 8 (5-15); CALCIUM 7.8 mg/dL (8.4-11.0); CHLORIDE 97 mmol/L (98-107); CREATININE 0.77 mg/dL (0.55-1.30); GLUCOSE 135 mg/dL (70-99); POTASSIUM 4.2 mmol/L (3.5-5.1); SODIUM SERUM 129 mmol/L (136-145); UREA NITROGEN, BLOOD 33 mg/dL (8-21)
[2018-06-22] MEDS: LOSARTAN POTASSIUM 50 MG TABLET (COZAAR) PO SCH (10:07)
[2018-06-22] MEDS: LACTOBACILLUS RHAMNOSUS GG 1 CAP CAPSULE GT SCH ×2 (10:08→20:43)
[2018-06-22] MEDS: APIXABAN 2.5 MG TABLET PO SCH ×2 (10:08→20:44)
[2018-06-22] MEDS: CARVEDILOL 3.125 MG TABLET (COREG) PO SCH ×2 (10:09→20:43)
[2018-06-22] MEDS: METOCLOPRAMIDE HCL 10 MG TABLET PO SCH ×3 (10:09→20:44)
[2018-06-22] MEDS: ASCORBIC ACID 500 MG TABLET PO SCH (10:09)
[2018-06-22] MEDS: DOCUSATE SODIUM 100 MG CAPSULE PO SCH (10:09)
[2018-06-22] MEDS: MULTIVITAMINS TAB 1 TABLET PO SCH (10:09)
[2018-06-22] MEDS: LACTULOSE 20 GM/30 ML UDC PO SCH (10:09)
[2018-06-22] MEDS: NACL 0.9% 1,000 ML IV SCH (12:32)
[2018-06-23] VITALS (20 sets, daily range): BP systolic 117–159
[2018-06-23] MEDS: LevALBUTEROL HCL 1.25 MG/0.5 ML *CONC.* VIAL.NEB (XOPENEX CONC.) INH SCH ×4 (01:05→20:13)
[2018-06-23] MEDS: PIPERACILLIN/TAZO 2.25G/DEX-IS 50 ML IV SCH ×4 (06:34→23:22)
[2018-06-23] MEDS: LEVOTHYROXINE SODIUM 0.05 MG TABLET PO SCH (06:34)
[2018-06-23] MEDS: HYDROCORTISONE SOD SUCC 100 MG/2 ML VIAL IVP SCH ×2 (06:34→21:34)
[2018-06-23] MEDS: OMEPRAZOLE 20 MG CAPSULE.DR (PriLOSEC) PO SCH (06:35)
[2018-06-23] MEDS: DILTIAZEM HCL 30 MG TABLET PO SCH ×3 (06:35→21:37)
[2018-06-23 06:42] LABS: ALANINE AMINOTRANSFERASE 118 U/L (12-78); ALBUMIN 2.4 g/dL (3.4-4.8); ANION GAP 5 (5-15); ASPARTATE AMINOTRANSFERASE 24 U/L (10-37); CALCIUM 7.9 mg/dL (8.4-11.0); CHLORIDE 102 mmol/L (98-107); CREATININE 0.78 mg/dL (0.55-1.30); GLUCOSE 185 mg/dL (70-99); POTASSIUM 3.7 mmol/L (3.5-5.1); SODIUM SERUM 132 mmol/L (136-145); TOTAL BILIRUBIN 0.6 mg/dL (0.0-1.0); UREA NITROGEN, BLOOD 30 mg/dL (8-21)
[2018-06-23 06:44] LABS: BASOPHILS % (AUTO) 0.1 % (0.0-2.0); EOSINOPHILS % (AUTO) 0.1 % (0.0-4.0); HEMATOCRIT 35.5 % (36-48); HEMOGLOBIN 11.2 g/dL (12.0-16.0); LYMPHOCYTES # (AUTO) 0.3 K/uL (1.0-5.5); LYMPHOCYTES % (AUTO) 2.6 % (20.5-51.5); MEAN CORPUSCULAR HEMOGLOBIN 32 pg (27-31); MEAN CORPUSCULAR HGB CONC 32 % (32-36); MEAN CORPUSCULAR VOLUME 101 fL (79.0-98.0); MONOCYTES # (AUTO) 0.2 K/uL (0.0-1.0); NEUTROPHILS # (AUTO) 9.3 K/uL (1.8-7.7); NEUTROPHILS % (AUTO) 95.2 % (40.0-70.0); PLATELET COUNT (AUTO) 168 K/uL (130-430); RED BLOOD CELL COUNT(AUTO) 3.53 MIL/uL (4.2-6.2); RED CELL DISTRIBUTION WIDTH 21.7 % (9.0-15.0); WHITE BLOOD COUNT (AUTO) 9.8 K/uL (4.8-10.8)
[2018-06-23] MEDS: DOCUSATE SODIUM 100 MG CAPSULE PO SCH (09:00)
[2018-06-23] MEDS: ASCORBIC ACID 500 MG TABLET PO SCH (09:55)
[2018-06-23] MEDS: CARVEDILOL 3.125 MG TABLET (COREG) PO SCH ×2 (09:55→21:37)
[2018-06-23] MEDS: METOCLOPRAMIDE HCL 10 MG TABLET PO SCH ×3 (09:55→21:36)
[2018-06-23] MEDS: LACTOBACILLUS RHAMNOSUS GG 1 CAP CAPSULE GT SCH ×2 (09:55→21:35)
[2018-06-23] MEDS: MULTIVITAMINS TAB 1 TABLET PO SCH (09:55)
[2018-06-23] MEDS: APIXABAN 2.5 MG TABLET PO SCH ×2 (09:56→21:36)
[2018-06-23] MEDS: LOSARTAN POTASSIUM 50 MG TABLET (COZAAR) PO SCH (09:56)
[2018-06-23] MEDS: NACL 0.9% 1,000 ML IV SCH (11:57)
[2018-06-23] MEDS ORDERED: FUROSEMIDE 20 MG/2 ML VIAL IVP ONE (14:15)
[2018-06-24] MEDS: LevALBUTEROL HCL 1.25 MG/0.5 ML *CONC.* VIAL.NEB (XOPENEX CONC.) INH SCH ×4 (00:54→20:11)
[2018-06-24] MEDS: NACL 0.9% 1,000 ML IV SCH (01:17)
[2018-06-24] MEDS ORDERED: PIPERACILLIN/TAZOBACTAM 2.25 GM VIAL IV ONE (01:40)
[2018-06-24] MEDS: DILTIAZEM HCL 30 MG TABLET PO SCH ×2 (05:48→14:56)
[2018-06-24] MEDS: PIPERACILLIN/TAZO 2.25G/DEX-IS 50 ML IV SCH ×4 (05:49→23:32)
[2018-06-24 06:33] LABS: LYMPHOCYTES # (AUTO) 0.3 K/uL (1.0-5.5); MONOCYTES # (AUTO) 0.3 K/uL (0.0-1.0); NEUTROPHILS % (AUTO) 93.9 % (40.0-70.0)
[2018-06-24] MEDS: OMEPRAZOLE 20 MG CAPSULE.DR (PriLOSEC) PO SCH (06:37)
[2018-06-24] MEDS: LEVOTHYROXINE SODIUM 0.05 MG TABLET PO SCH (06:37)
[2018-06-24 06:50] LABS: BASOPHILS % (AUTO) 0.4 % (0.0-2.0); HEMATOCRIT 35.8 % (36-48); HEMOGLOBIN 11.4 g/dL (12.0-16.0); LYMPHOCYTES % (AUTO) 3.1 % (20.5-51.5); MEAN CORPUSCULAR HEMOGLOBIN 32 pg (27-31); MEAN CORPUSCULAR HGB CONC 32 % (32-36); MEAN CORPUSCULAR VOLUME 99 fL (79.0-98.0); MONOCYTES % (AUTO) 2.6 % (1.7-9.3); NEUTROPHILS # (AUTO) 9.8 K/uL (1.8-7.7); PLATELET COUNT (AUTO) 190 K/uL (130-430); RED CELL DISTRIBUTION WIDTH 20.8 % (9.0-15.0); WHITE BLOOD COUNT (AUTO) 10.4 K/uL (4.8-10.8)
[2018-06-24 06:52] LABS: ANION GAP 8 (5-15); CALCIUM 8.4 mg/dL (8.4-11.0); CHLORIDE 102 mmol/L (98-107); CREATININE 0.81 mg/dL (0.55-1.30); GLUCOSE 140 mg/dL (70-99); SODIUM SERUM 139 mmol/L (136-145); UREA NITROGEN, BLOOD 33 mg/dL (8-21)
[2018-06-24 07:03] LABS: POTASSIUM 3.3 mmol/L (3.5-5.1)
[2018-06-24 08:10] VITALS: BP_SYST 146
[2018-06-24] MEDS: LOSARTAN POTASSIUM 50 MG TABLET (COZAAR) PO SCH (09:11)
[2018-06-24] MEDS: METOCLOPRAMIDE HCL 10 MG TABLET PO SCH ×2 (09:11→14:56)
[2018-06-24] MEDS: LACTULOSE 20 GM/30 ML UDC PO SCH (09:11)
[2018-06-24] MEDS: MULTIVITAMINS TAB 1 TABLET PO SCH (09:11)
[2018-06-24] MEDS: DOCUSATE SODIUM 100 MG CAPSULE PO SCH (09:11)
[2018-06-24] MEDS: LACTOBACILLUS RHAMNOSUS GG 1 CAP CAPSULE GT SCH ×2 (09:12→21:24)
[2018-06-24] MEDS: ASCORBIC ACID 500 MG TABLET PO SCH (09:12)
[2018-06-24] MEDS: CARVEDILOL 3.125 MG TABLET (COREG) PO SCH (09:12)
[2018-06-24] MEDS: APIXABAN 2.5 MG TABLET PO SCH (09:15)
[2018-06-24] MEDS: HYDROCORTISONE SOD SUCC 100 MG/2 ML VIAL IVP SCH ×2 (09:15→21:26)
[2018-06-24] MEDS ORDERED: MENTHOL/ZINC OXIDE 113 GM OINT. TP PRN (12:15)
[2018-06-24 12:22] VITALS: BP_SYST 155
[2018-06-24] MEDS ORDERED: POTASSIUM CHLORIDE 20 MEQ/PKT PACKET PO ONE (15:15)
[2018-06-24] MEDS ORDERED: COMMUNICATION ORDER XX ONE (15:30)
[2018-06-24 16:02] VITALS: BP_SYST 159
[2018-06-24] MEDS ORDERED: ACETAMINOPHEN 325 MG TABLET GT PRN (16:38)
[2018-06-24] MEDS ORDERED: ASCORBIC ACID 500 MG TABLET GT SCH (16:39)
[2018-06-24] MEDS ORDERED: LEVOTHYROXINE SODIUM 0.05 MG TABLET GT SCH (16:40)
[2018-06-24] MEDS ORDERED: LACTULOSE 20 GM/30 ML UDC GT SCH (16:40)
[2018-06-24] MEDS ORDERED: LOSARTAN POTASSIUM 50 MG TABLET (COZAAR) GT SCH (16:40)
[2018-06-24] MEDS ORDERED: DOCUSATE SODIUM 100 MG/10 ML UDC GT SCH (16:40)
[2018-06-24] MEDS ORDERED: MULTIVITAMINS TAB 1 TABLET GT SCH (16:41)
[2018-06-24] MEDS ORDERED: MILK OF MAGNESIA 30 ML UDC GT PRN (16:41)
[2018-06-24] MEDS ORDERED: OMEPRAZOLE 20 MG CAPSULE.DR (PriLOSEC) GT SCH (16:42)
[2018-06-24 19:35] VITALS: BP_SYST 151
[2018-06-24] MEDS: METOCLOPRAMIDE HCL 10 MG TABLET GT SCH (21:25)
[2018-06-24] MEDS: DILTIAZEM HCL 30 MG TABLET GT SCH (21:25)
[2018-06-24] MEDS: CARVEDILOL 3.125 MG TABLET (COREG) GT SCH (21:26)
[2018-06-24] MEDS: APIXABAN 2.5 MG TABLET GT SCH (21:28)
[2018-06-25] VITALS: BP_SYST 153
[2018-06-25] MEDS: LevALBUTEROL HCL 1.25 MG/0.5 ML *CONC.* VIAL.NEB (XOPENEX CONC.) INH SCH ×4 (00:19→20:08)
[2018-06-25 04:27] VITALS: BP_SYST 155
[2018-06-25] MEDS: DILTIAZEM HCL 30 MG TABLET GT SCH ×2 (06:04→14:51)
[2018-06-25] MEDS: PIPERACILLIN/TAZO 2.25G/DEX-IS 50 ML IV SCH ×3 (06:05→17:50)
[2018-06-25] MEDS: LORazepam 2 MG/ML VIAL IVP PRN (06:18)
[2018-06-25] MEDS: METOCLOPRAMIDE HCL 10 MG TABLET GT SCH ×3 (10:41→20:24)
[2018-06-25] MEDS: APIXABAN 2.5 MG TABLET GT SCH ×2 (10:43→20:26)
[2018-06-25] MEDS: LACTOBACILLUS RHAMNOSUS GG 1 CAP CAPSULE GT SCH ×2 (10:43→20:24)
[2018-06-25] MEDS: CARVEDILOL 3.125 MG TABLET (COREG) GT SCH ×2 (10:45→20:24)
[2018-06-25 11:28] VITALS: BP_SYST 150
[2018-06-25 15:25] VITALS: BP_SYST 138
[2018-06-25 17:25] VITALS: BP_SYST 138
[2018-06-25] MEDS ORDERED: hydrALAZINE HCL 20 MG/ML VIAL IVP PRN (19:15)
[2018-06-25] MEDS ORDERED: hydrALAZINE HCL 20 MG/ML VIAL ONE (19:23)
[2018-06-26] MEDS ORDERED: HYDROCORTISONE SOD SUCC 100 MG/2 ML VIAL IVP SCH (09:00)
== END 2018-06-25 21:25 | DRG 871 ==
LOC: SED 15:02 → STU 19:00 → SIC 06-17 05:46 → STU 06-23 16:45
PROVIDERS: ADMIT Family Medicine; ATTEND Family Medicine
PROC: 0D20XUZ Change Feeding Device in Upper Intestinal Tract, External Approach (ICD-10-PCS; principal; 2018-06-16)
PROC: 02HV33Z Insertion of Infusion Device into Superior Vena Cava, Percutaneous Approach (ICD-10-PCS; 2018-06-17)
PROC: B548ZZA Ultrasonography of Superior Vena Cava, Guidance (ICD-10-PCS; 2018-06-17)
PROC: 5A09457 Assistance with Respiratory Ventilation, 24-96 Consecutive Hours, Continuous Positive Airway Pressure (ICD-10-PCS; 2018-06-17)
PROC: 5A09357 Assistance with Respiratory Ventilation, Less than 24 Consecutive Hours, Continuous Positive Airway Pressure (ICD-10-PCS; 2018-06-19)
PROC: 0BH17EZ Insertion of Endotracheal Airway into Trachea, Via Natural or Artificial Opening (ICD-10-PCS; 2018-06-19)
PROC: 5A1945Z Respiratory Ventilation, 24-96 Consecutive Hours (ICD-10-PCS; 2018-06-19)
DX: A41.9 Sepsis, unspecified organism (principal); J96.02 Acute respiratory failure with hypercapnia; J96.01 Acute respiratory failure with hypoxia; R65.21 Severe sepsis with septic shock; J69.0 Pneumonitis due to inhalation of food and vomit; G93.40 Encephalopathy, unspecified; K94.23 Gastrostomy malfunction; N17.9 Acute kidney failure, unspecified; I42.0 Dilated cardiomyopathy; E46 Unspecified protein-calorie malnutrition; Z68.1 Body mass index [BMI] 19.9 or less, adult; D68.59 Other primary thrombophilia; Z99.11 Dependence on respirator [ventilator] status; N39.0 Urinary tract infection, site not specified; I13.0 Hypertensive heart and chronic kidney disease with heart failure and stage 1 through stage 4 chronic kidney disease, or unspecified chronic kidney disease; I50.30 Unspecified diastolic (congestive) heart failure; J44.9 Chronic obstructive pulmonary disease, unspecified; K75.89 Other specified inflammatory liver diseases; E87.5 Hyperkalemia; Y83.3 Surgical operation with formation of external stoma as the cause of abnormal reaction of the patient, or of later complication, without mention of misadventure at the time of the procedure; D63.8 Anemia in other chronic diseases classified elsewhere; E86.0 Dehydration; D64.9 Anemia, unspecified; D69.6 Thrombocytopenia, unspecified; E03.9 Hypothyroidism, unspecified; I48.2 Chronic atrial fibrillation; M81.0 Age-related osteoporosis without current pathological fracture; K21.9 Gastro-esophageal reflux disease without esophagitis; F03.90 Unspecified dementia, unspecified severity, without behavioral disturbance, psychotic disturbance, mood disturbance, and anxiety; Z95.0 Presence of cardiac pacemaker; Z87.81 Personal history of (healed) traumatic fracture; Z87.440 Personal history of urinary (tract) infections; Z79.01 Long term (current) use of anticoagulants; Z79.899 Other long term (current) drug therapy; Y92.89 Other specified places as the place of occurrence of the external cause; Z74.01 Bed confinement status
CPT/HCPCS: 36415; 36600; 71045; 74018; 74240-TC; 76700-TC; 80048; 80053; 80076; 81000-TC; 82803-TC; 82962; 83605; 83880; 85007; 85025; 85027; 87040-TC; 87070-TC; 87081; 87086; 87205-TC; 93005; 93306; 94002; 94003; 94640; 94660; 96361; 96374; 96375; 99291; A6209; C1751; J0171; J0360; J0696; J1720; J1815; J1940; J2060; J2250; J2543; J3490; J7030; J7040; J7050; J7060; J7612; J8597; Q9963